=== PATIENT | female | born 1980 | race Caucasian/White ===

== ENCOUNTER 2020-03-27 15:17 | Outpatient (CLI) | payer BC ==
--- NOTE | 2020-03-27 16:02 | ULT ---
Pelvic sonogram transabdominal imaging with duplex evaluation HISTORY: Vaginal bleeding. FINDINGS: Urinary bladder shows no abnormalities. Uterus has a heterogeneous echotexture and measures up to 14.0 cm. Heterogeneous hypoechoic myometrial lesions of the measure up to 4.5 cm greatest length at the anteri or wall. Endometrium is 0.7 cm No free fluid. Each ovary has normal appearance with good color and spectral Doppler flow. IMPRESSION : Moderate fibroid involvement of the enlarged uterus.
== END 2020-03-27 15:18 | disposition home or self-care (01) ==
LOC: SCSULT 15:17
PROVIDERS: ATTEND Hospitalist
DX: N92.4 Excessive bleeding in the premenopausal period (principal); D25.9 Leiomyoma of uterus, unspecified; N85.2 Hypertrophy of uterus
CPT/HCPCS: 76856; 93976

== ENCOUNTER 2023-02-25 11:40 | Emergency (ER) | payer BC ==
[2023-02-25 12:30] LABS: #Basophils 0.1 thou/uL (0.0-0.2); #Eosinphils 0.3 thou/uL (0.0-0.7); #Monocytes 0.6 thou/uL (0.11-0.59); #Neutrophils 4.4 thou/uL (1.40-6.50); %Basophils 0.8 % (0.0-1.0); %Eosinophils 3.3 % (0.0-10.0); %Lymphocytes 36.9 % (21.0-51.0); %Monocytes 6.8 % (0.0-10.0); %Neutrophils 51.8 % (42.0-75.0); Hematocrit 46.9 % (36.0-47.0); Hemoglobin 15.2 g/dL (12.0-16.0); Mean Corpuscular HGB CONC 32.4 g/dL (32.0-36.0); Mean Corpuscular Hemoglobin 26.3 pg (27.0-31.0); Mean Corpuscular Volume 81.1 fl (78.0-98.0); Platelet Count 312 10x3/uL (130-400); RBC Distribution Width 13.2 % (11.5-14.5); Red Blood Cell (RBC) Count 5.78 mill/uL (4.20-5.40); White Blood Cell (WBC) Count 8.5 10x3/uL (4.8-10.8)
[2023-02-25 12:50] LABS: ALT (SGPT) 37 U/L (8-55); AST (SGOT) 22 U/L (5-34); Albumin 4.9 g/dL (3.5-5.0); Alkaline Phosphatase 120 U/L (40-110); Anion Gap 13 mmol/L (10-20); BUN (Urea Nitrogen) 13 mg/dL (7.0-18.7); Bilirubin, Total 0.4 mg/dL (0.2-1.2); Calc. Creatinine Clearance 0 mL/min (70-130); Calcium 10.4 mg/dL (7.8-10.44); Carbon Dioxide 27 mmol/L (22-29); Chloride 99 mmol/L (98-107); Estimated GFR 93; Globulin 3.4 g/dL (2.4-3.5); Glucose 113 mg/dL (70-105); Potassium 3.4 mmol/L (3.5-5.1); Protein, Total 8.3 g/dL (6.0-8.3); Sodium 136 mmol/L (136-145)
[2023-02-25 12:53] LABS: BHCG - Serum Negative (NEGATIVE); Pregs Control Background? CLEAR/WHITE (CLR/WHITE); Pregs Control Bar Appear? YES (CONTROL BAR)
[2023-02-25 12:54] LABS: Troponin I Less than 0.010 ng/mL (< 0.028)
== END 2023-02-25 14:10 | disposition home or self-care (01) ==
LOC: ERS 11:40
DX: R00.2 Palpitations (principal); I10 Essential (primary) hypertension; Z79.899 Other long term (current) drug therapy
CPT/HCPCS: 71045; 80053; 84443; 84484; 84703; 85025; 85379; 93005

== ENCOUNTER 2024-05-04 11:41 | Outpatient (CLI) | payer BC | END 2024-05-04 11:42 | disposition home or self-care (01) | LOC: BICRAD 11:41 | PROVIDERS: ATTEND Family Medicine | DX: M79.641 Pain in right hand (principal) ==